=== PATIENT | male | born 1975 | race Caucasian/White ===

== ENCOUNTER 2018-08-05 06:11 | Observation (INO) | payer OTHER ==
[~2018-08-05] VITALS: Ht 182.9 cm; Wt 75.0 kg
--- NOTE | ~2018-08-05 | HEMODYNAMI ---
PATIENT:DARIUS JIMENEZ MEDICAL RECORD: [id number] : 77 LOCATION:[address] ADMISSION DATE: 08/05/18 Generatedon:08/05/201812:50 Patient name: DARIUS JIMENEZ Patient #: [id number] SSN: : 1975 Date of study: 08/05/2018 Page: Of Hemodynamic Procedure Report Patient Data Patient Demographics Procedure consent was obtained First Name: DARIUS Gender: Male Last Name: TONY : 1975 Patient #: [id number] Age: 42 year(s) Race: Unknown Additional ID: [id number] Contact details [address]: [address] [place] [address] State: [place] City: [place] Zip code: [address] Admission Admission Data Admission Date: 08/05/2018 Admission Time: 7:34 Room #: D2123 Weight (lbs.): 165.35 Weight (kg.): 75 Lab Results Lab Result Date: 08/05/2018 Lab Result Time: 0:00 Biochemistry Name Units Result Min Max BUN mg/dl 12 --(-*--)-- 7 18 Creatinine mg/dl 1 --(--*-)-- 0.6 1.3 CBC Name Units Result Min Max Hemoglobin g/dl 15.7 --(--*-)-- 13.5 17.5 Procedure Procedure Types Cath Procedure Diagnostic Procedure [facility] w/Coronaries Procedure Description Procedure Date Procedure Date: 08/05/2018 Procedure Start Time: 12:40 Procedure End Time: 12:45 Procedure Staff Name Function Fadi Mireles MD Performing Physician Franklin Yu RT Monitor Peri Daley RT Scrub Brittany Galeana RN Nurse Justin Bo RT Cork Insulator Helper Procedure Data Cath Procedure Fluoroscopy Diagnostic fluoroscopy Total fluoroscopy Time: 1.3 time: 1.3 min min Diagnostic fluoroscopy Total fluoroscopy dose: 248 dose: 248 mGy mGy Contrast Material Contrast Material Type Amount (ml) Isovue 370 40 Entry Location Entry Primary Successful Side Size Upsize Upsize Entry Closure Raygoza ccessful Closure Location (Fr) 1 (Fr) 2 (Fr) Remarks Device Remarks Radial Right 6 Fr Mechanical artery Short Compression Estimated blood loss: 10 ml Diagnostic catheters Device Type Used For End Catheter Placement DIAGNOSTIC Bear 110cm 5 Procedure Fr catheter ([id number]) Procedure Complications No complications Procedure Medications Medication Administration Route Dosage 0.9% NaCl I.V. 100 ml/hr Oxygen etCO2 Nasal cannula 2 l/min Lidocaine 2% added to field 20 Heparin Flush Bag added to field 2 bags (1000units/500ml NS) Radial Cocktail added to field 1 syringe (Verapamil 2mg/Nitro 400mcg/Heparin 1500units) Versed I.V. 2 mg Fentanyl I.V. 50 mcg Lopressor I.V. 5 mg Versed I.V. 2 mg Fentanyl I.V. 50 mcg Hemodynamics Rest HGB: 15.7 (g/dl) Heart Rate: 98 (bpm) Pressure Samples Time Site Value (mmHg) Purpose Heart Use Rate(bpm) 12:43 AO 108/87(98) Snapshot 88 Snapshots Pre Cath Intra NCS Post Cath Vital Signs Time Heart Resp SPO2 etCO2 NIBP (mmHg) Rhythm Pain Sedation Rate (ipm) (%) (mmHg) Status Level (bpm) 12:12:27 86 17 98 23 158/97(129) NSR 0 (11) 10(A) , No pain 12:16:43 69 26 100 24.1 167/100(130) NSR 0 (11) 10(A) , No pain 12:21:03 91 16 98 27.9 150/99(122) NSR 0 (11) 10(A) , No pain 12:25:11 87 15 97 27.1 160/91(121) NSR 0 (11) 10(A) , No pain 12:29:15 85 16 98 25.6 151/96(111) NSR 0 (11) 10(A) , No pain 12:33:18 85 15 98 12.8 152/87(128) NSR 0 (11) 10(A) , No pain 12:37:18 93 14 92 29.4 156/96(113) NSR 0 (11) 10(A) , No pain 12:42:13 81 16 98 26.3 190/87(104) NSR 0 (11) 10(A) , No pain Medications Time Medication Route Dose Verified Delivered Reason Notes E ffectiveness by by 12:15:51 0.9% NaCl I.V. 100 Fadi Brittany used for ml/hr Chi Galeana partition assembly machine operator 12:15:58 Oxygen etCO2 2 l/min Fadi Brittany used for Nasal Chi Galeana procedure cannula RN 12:16:03 Lidocaine 2% added 20ml Fadi Fadi for local to vial Chi Mireles MD anesthetic field 12:16:08 Heparin Flush added 2 bags Fadi Fadi used for Bag to Cih Mireles MD procedure (1000units/500ml field NS) 12:16:16 Radial Cocktail added 1 Fadi Fadi used for (Verapamil to syringe Chi Mireles MD procedure 2mg/Nitro field 400mcg/Heparin 1500units) 12:34:24 Versed I.V. 2 mg Fadi Brittany for Chi Galeana sedation RN 12:34:31 Fentanyl I.V. 50 mcg Fadi Brittany for Chi Galeana sedation RN 12:39:20 Versed I.V. 2 mg Fadi Brittany for Chi Galeana sedation RN 12:39:28 Fentanyl I.V. 50 mcg Fadi Brittany for Chi Galeana sedation RN 12:45:16 Lopressor I.V. 5 mg Fadi Brittany Per Chi Galeana physician director of field service Log Time Note 11:45:15 Justin Bo RT(R) sent for patient. Start room use. 11:52:53 Diagnostic Cath Status : Elective 11:53:16 Time tracking: Regular hours (M-F 7:00 - 5:00) 11:53:20 Plan of Care:Hemodynamics will remain stable., Cardiac rhythm will remain stable., Comfort level will be maintained., Respiratory function will remain adequate., Patient/ family verbilizes understanding of procedure., Procedure tolerated without complication., Recovers from procedure without complications.. 12:05:13 Patient received from Pre/Post Procedure Room to CCL 2 Alert and oriented. Tansferred to table in Supine position. 12:05:23 Warm blankets applied, and ruperto hugger turned on for patient comfort. 12:05:24 Correct patient and procedure confirmed by team. 12:05:26 Signed procedure consent form obtained from patient. 12:05:27 ECG and BP/O2 sat monitors applied to patient. 12:11:14 Vital chart was started 12:11:36 Rhythm: sinus rhythm 12:11:37 Full Disclosure recording started 12:12:41 H&P Date Dictated: 08/05/2018 Within 30 days and on chart., H&P Addendum completed by physician on day of procedure. (MUST COMPLETE FOR ALL OUTPATIENTS). 12:12:42 Pre-procedure instructions explained to patient. 12:12:42 Pre-op teaching completed and patient verbalized understanding. 12:12:44 Family unavailable. 12:12:46 Patient NPO since Midnight. 12:12:47 Is the patient allergic to Iodine/contrast media? No. 12:12:49 Is patient on blood thinner?No 12:12:50 Patient diabetic? No. 12:12:53 Previous problem with sedation/anesthesia? No ? 12:12:54 Snore? Yes 12:12:55 Sleep apnea? No 12:12:56 Deviated septum? No 12:12:56 Opens mouth fully? Yes 12:12:57 Sticks out tongue? Yes 12:13:01 Dentures? No ? 12:13:03 Airway obstruction? No ? 12:13:07 Pre procedure: right dorsailis pedis pulse 1+ Palpable, but thready & weak; easily obliterated 12:13:09 Modified Aman's test Ulnar < 7 seconds 12:13:12 Patient pain scale 0/10 ?. 12:13:16 IV patent on arrival in left forearm with 0.9% NaCl at [facility]. 12:13:19 Lab results completed and on chart. 12:13:22 Right Radial & Right Groin area was prepped with chlora-prep and draped in sterile fashion 12:13:23 Alarms reviewed by R. N. 12:13:24 Sharps counted by scrub and verified by R.N. 12:15:51 0.9% NaCl 100 ml/hr I.V. was administered by Brittany Galeana RN; used for procedure; 12:15:58 Oxygen 2 l/min etCO2 Nasal cannula was administered by Brtitany Galeana RN; used for procedure; 12:16:03 Lidocaine 2% 20ml vial added to field was administered by Fadi Mireles MD; for local anesthetic; 12:16:08 Heparin Flush Bag (1000units/500ml NS) 2 bags added to field was administered by Fadi Mireles MD; used for procedure; 12:16:16 Radial Cocktail (Verapamil 2mg/Nitro 400mcg/Heparin 1500units) 1 syringe added to field was administered by Fadi Mireles MD; used for procedure; 12:19:21 Use device set Radial Dx or PCI 12:19:22 Tegaderm 4 x 4 (1626W) opened to sterile field. 12:19:23 ACIST Manifold (37182) opened to sterile field. 12:19:24 ACIST Hand Control (36505) opened to sterile field. 12:19:25 ACIST Syringe (14403) opened to sterile field. 12:19:26 Medline Cath Pack ([id number]) opened to sterile field. 12:19:26 Bag Decanter (2002) opened to sterile field. 12:19:27 DIAGNOSTIC WIRE .035 260cm J wire (935250) opened to sterile field. 12:19:29 SHEATH 6FR Slender (80-1294) opened to sterile field. 12:19:32 MBrace Wrist Support ([id number]) opened to sterile field. 12:33:11 Patient Weight : 165.35 lbs 12:33:37 Lab Result : Creatinine 1 mg/dl 12:33:37 Lab Result : BUN 12 mg/dl 12:33:37 Lab Result : Hemoglobin 15.7 g/dl 12:33:59 --------ALL STOP TIME OUT------ 12:34:00 Final Timeout: patient, procedure, and site verified with staff and physician. All members of the team are in agreement. 12:34:02 Right Radial & Right Groin site verified by team. 12:34:05 Maximum allowable Isovue 370 dose 300ml. Physician notified. (300ml for normal creatinines. For patients with creatinine of 1.7 or higher multiply weight(kg) x 5 divided by creatinine.) 12:34:09 Fire Safety Assessment: A--An alcohol-based skin anteseptic being used preoperatively., C--Open oxygen or nitrous oxide is being used., D--An ESU, laser, or fiber-optic light is being used. 12:34:12 Physical assessment completed. ASA score P 2 - A patient with mild systemic disease as per Fadi Mireles MD. 12:34:14 Sedation plan: IV Moderate Sedation Medication:Versed, Fentanyl 12:34:24 Versed 2 mg I.V. was administered by Brittany Galeana RN; for sedation; 12:34:31 Fentanyl 50 mcg I.V. was administered by Brittany Galeana RN; for sedation; 12:39:20 Versed 2 mg I.V. was administered by Brittany Galeana RN; for sedation; 12:39:28 Fentanyl 50 mcg I.V. was administered by Brittany Galeana RN; for sedation; 12:40:18 Procedure started. 12:40:23 Local anesthetic to right radial artery with Lidocaine 2% by Fadi Mireles MD.INITIAL ACCESS ONLY 12:40:44 A 6 Fr Short sheath was inserted into the Right Radial artery 12:41:54 A DIAGNOSTIC Bear 110cm 5 Fr catheter ([id number]) was advanced over the wire and used for Procedure. 12:42:10 LV angiography performed. 12:42:11 LV gram done using RANDALL 12:42:16 EF : 55 % 12:42:19 Injector settings: Ml/sec: 7, Volume: 15, 12:42:25 Baseline sample Acquired. 12:42:38 LCA angiography performed. 12:43:17 RCA angiography performed. 12:43:37 Catheter removed. 12:43:50 TR BAND Standard ([id number]) opened to sterile field. 12:44:02 Sheath removed intact; hemostasis achieved with Mechanical Compression to the Right Radial artery. 12:44:03 Procedure ended.(Physican Out) 12:44:14 Fluoroscopy time 01.30 minutes. 12:44:18 Fluoroscopy dose: 248 mGy 12:44:18 Flurop Dose total: 248 12:44:22 Contrast amount:Isovue 370 40ml. 12:44:23 Sharps counted by scrub and verified by R.N. 12:44:30 Insertion/operative site no bleeding no hematoma. 12:44:44 TR band inflated with 12cc of air. 12:44:45 Post Procedure Pulses reassessed and unchanged 12:44:47 Post-procedure physical assessment completed. ASA score P 2 - A patient with mild systemic disease as per Fadi Mireles MD. 12:44:49 Post procedure rhythm: unchanged. 12:44:55 Estimated blood loss: 10 ml 12:44:56 Post procedure instruction explained to patient.Patient verbalizes understanding. 12:44:57 Patient needs reinforcement of post procedure teaching. 12:45:01 Procedure and supply charges have been captured, reviewed, submitted and are correct. 12:45:03 Procedure Complication : No complications 12:45:16 Lopressor 5 mg I.V. was administered by Brittany Galeana RN; Per physician; 12:45:28 Vital chart was stopped 12:45:29 See physician's report for complete and final results. 12:45:31 Report given to PCU. 12:45:35 Patient transfered to PCU with Bed. 12:45:38 Procedure ended. 12:45:38 Full Disclosure recording stopped 12:49:34 End room use (Document Last) Device Usage Item Name Manufacture Quantity Catalog Hospital Part Current Minimal Lot# / Number Charge Number Stock Stock Serial# Code Tegaderm 4 3M 1 1626W [id number] 492419 829141 5 x 4 (1626W) ACIST Acist 1 25423 108540 105363 742787 5 Manifold Medical (21646) Systems Inc ACIST Hand Acist 1 38931 450981 564015 865706 5 Control Medical (42629) Systems Inc ACIST Acist 1 15785 903294 014445 146644 20 Syringe Medical (89356) Systems Inc Medline Medline 1 [id number] 078044 42422 496414 5 Cath Pack ([id number]) Bag Microtek 1 2001S 469255 49962 173413 5 Decanter Medical Inc. () DIAGNOSTIC [place] 1 833570 355363 992704 373676 30 WIRE .035 260cm J wire (517671) SHEATH 6FR Terumo 1 [id number] 069400 379953 427492 5 Slender (80-1060) MBrace Advanced 1 140-0250-00 016142 69975 758475 5 Wrist Vascular Support Dynamics ([id number]) DIAGNOSTIC Terumo 1 40-5748 809882 956737 837216 5 Bear 110cm 5 Fr catheter (345173) TR BAND Terumo 1 [id number] 679041 642513 453603 40 Standard ([id number]) Signature Audit [place] Stage Time Signature Unsigned Intra-Procedure 08/05/2018 Franklin Yu 12:49:58 PM RT(R) Signatures Monitor : Franklin Yu RT Signature : Date : Time : [place] [id number] [place] [address]
--- NOTE | ~2018-08-05 | EC ---
PATIENT:DARIUS JIMENEZ DATE OF SERVICE: 08/05/18 SEX: M MEDICAL RECORD: [id number] DATE OF : [birth year] LOCATION:D.M2 D.212 AGE OF PATIENT: 42 ADMISSION DATE: 08/05/18 REFERRING PHYSICIAN: INTERPRETING PHYSICIAN: KATE MIRELES MD ECHOCARDIOGRAM REPORT ECHO CHARGES 4 ECHO COMPLETE Date: 08/05/18 CLINICAL DIAGNOSIS: CHEST PAIN ECHOCARDIOGRAPHIC MEASUREMENTS (adult normal given) AC root (d.<3.7cm) 3.8 cm LV Septum d (<1.2 cm> 1.4 cm Valve Excursion 1.9 cm LV Septum (systole) 1.9 cm Left Atria (s.<4.0cm> 3.2 cm LVPW d(<1.2cm) 1.5 cm RV (d.<2.3cm) 3.5 cm LVPW (sytole) 1.6 cm LV diastole(<5.6CM) 4.9 cm MV E-F(>70mm/sec) cm LV systole 2.7 cm LVOT Diameter 2.3 cm MV exc.(>10mm) 1.5 cm Est.ejection fraction (50-75%) % DOPPLER: LVIT cm/sec A 76.0 cm/sec E 82.0 cm/sec LA cm/sec RVSP 21 mmHg LVOT 107 cm/sec AOP1/2T m/s Asc. Ao 132 cm/sec RVOT 85 cm/sec RA cm/sec PA 122 cm/sec AV Gradient Peak 6.95 mmHg AV Mean 3.32 mmHg AV Area 3.1 cm MV Gradient Peak 5.20 mmHg MV Mean 2.36 mmHg MV Area cm COMMENTS: Manager Telemetry: Yaneli JOHNSON Case Planner: 1 Dr. Mireles TAPE# PACS Pericardial Effusion N DATE OF SERVICE: 08/05/2018 FINDINGS: 1. Left ventricular chamber size is within normal limits. Left ventricular systolic function is normal. Overall ejection fraction is estimated at 60%. 2. Left atrium, right atrium, and right ventricular chamber sizes are within normal limit. 3. Valvular structures have normal structure and motion. 4. Doppler interrogation only reveals trace tricuspid regurgitation. No other valvular insufficiency or stenosis. ECHOCARDIOGRAM REPORT [id number] DARIUS JIMENEZ 5. No evidence of pericardial effusion or left ventricular thrombus. TRANSINT:[id number] Voice Confirmation ID: [id number] DOCUMENT ID: [id number] KATE MIRELES MD CC: [id number] DICTATION DATE: 08/05/18 1639 ETHICS OFFICER: 08/05/18 1736 ADM IN [place] [id number] [place] [address]
[2018-08-05 06:47] LABS: BASOPHILS 0 % (0-2); EOSINOPHILS 0 % (0-7); HEMATOCRIT 45.9 % (42.0-54.0); HEMOGLOBIN 15.7 g/dL (13.5-17.5); IMMATURE GRANULOCYTES 0.3 % (0-5); LYMPHOCYTES 8.3 % (15-50); MCH 30.6 pg (26.0-34.0); MCHC 34.2 g/dL (31.0-37.0); MCV 89.5 fL (80.0-100.0); MEAN PLATELET VOLUME 10.8 fL (7.4-10.4); MONOCYTES 0.9 % (2-11); NEUTROPHILS 90.5 % (40-80); PLATELET COUNT 262 10x3/uL (130-400); RBC 5.13 10x6/uL (4.20-6.10); RDW 13.4 % (11.5-14.5); WBC 13.9 10x3/uL (4.8-10.8)
[2018-08-05 06:50] LABS: ALBUMIN 3.8 g/dL (3.4-5.0); ALKALINE PHOSPHATASE 104 U/L (46-116); ALT (SGPT) 29 U/L (10-68); BILIRUBIN - TOTAL 0.47 mg/dL (0.2-1.3); CALC OSMOLALITY 287 mosm/kg (275-300); CALCIUM 8.9 mg/dL (8.5-10.1); CARBON DIOXIDE 25.2 mmol/L (21.0-32.0); CHLORIDE - SERUM 106 mmol/L (98-107); GLUCOSE 144 mg/dL (74-106); POTASSIUM - SERUM 4.3 mmol/L (3.5-5.1); PROTEIN - SERUM 7.2 g/dL (6.4-8.2); SODIUM 143 mmol/L (136-145); UREA NITROGEN 12 mg/dL (7-18); eGFR NON AFRICAN AMERICAN 87 mL/min (90-120)
[2018-08-05 07:14] LABS: CKMB 1.5 U/L (0.0-3.6); CREATINE KINASE 45 UL (21-232)
[2018-08-05 07:18] LABS: TROPONIN-I 0.424 ng/mL (0.000-0.060)
[2018-08-05 07:21] LABS: APPEARANCE CLEAR (CLEAR); BILIRUBIN NEGATIVE (NEGATIVE); COLOR YELLOW (YELLOW); GLUCOSE NEGATIVE (NEGATIVE); KETONE NEGATIVE (NEGATIVE); NITRITE NEGATIVE (NEGATIVE); PROTEIN NEGATIVE (NEGATIVE); SPECIFIC GRAVITY 1.015 (1.005-1.020)
[2018-08-05 07:24] LABS: UDS - AMPHET POSITIVE QUAL (NEGATIVE); UDS - BARB NEGATIVE QUAL (NEGATIVE); UDS - BENZO NEGATIVE QUAL (NEGATIVE); UDS - COCAINE NEGATIVE QUAL (NEGATIVE); UDS - OPIATE POSITIVE QUAL (NEGATIVE); UDS - PCP NEGATIVE QUAL (NEGATIVE); UDS - THC NEGATIVE QUAL (NEGATIVE)
--- NOTE | 2018-08-05 07:26 | NUR ---
PATIENTS TROPONIN 0.424, WAS 0.096 AT [facility] THIS . DR. DAVIS AND DR. SHEARER NOTIFIED, NO NEW ORDERS.
--- NOTE | 2018-08-05 08:00 | NUR ---
ARRIVE TO ROOM VIA STRETCHER FROM ER. ALERT AND ORIENTED X4. AMBULATES TO BED. GAIT STEADY. IV INFUSING ORDERED. REFUSE SCDs. UP AD DANA. CONTACTED PER CHAPITO HOLGUIN. CONTINUE ADMISSION PROCESS AND SAFETY PRECAUTIONS.
[2018-08-05 10:26] VITALS: BP 130/83; Ht 182.9 cm; Wt 75.0 kg
--- NOTE | 2018-08-05 10:42 | NUR ---
ALERT AND ORIENTED X4. SITTING UP IN BED. CONSENTS FOR FRANCHISE SALES REPRESENTATIVE SIGNED ON CHART. PRE-OP COMPLETE. DENIES ANY NEEDS AT THIS TIME. SINUS RHYTHM 70 ON TELEMETRY. CONTINUE PLAN OF CARE AND SAFETY PRECAUTIONS.
[2018-08-05 12:10] VITALS: BP 123/58
--- NOTE | 2018-08-05 13:06 | NUR ---
ARRIVE BACK TO ROOM VIA BED FROM ARCHITECT MANAGER. SEDATED. AROUSES EASILY TO STIMULI. FAMILY AT BEDSIDE. RT WRIST TR BAND C/D/I. FREE FROM HEMATOMA. FREE FROM BLEEDING. PULSES PALPABLE BILATERALLY. BP-125/75, HR-73, O2-95% WITH 2.5L NC. CONTINUE PLAN OF CARE AND SAFETY PRECAUTIONS.
[2018-08-05] MEDS ORDERED: BAYER CHEWABLE81 MG PO (14:27)
[2018-08-05] MEDS ORDERED: LOPRESSOR25 MG PO (14:28)
--- NOTE | 2018-08-05 17:17 | CN ---
PATIENT NAME:DARIUS BURRIS MEDICAL RECORD: [id number] : 77 LOCATION:D. D.2123 ADMIT DATE: 08/05/18 ACCOUNT: [id number] CONSULTING PHYSICIAN: KATE SHEARER MD REFERRING PHYSICIAN: FRANK OLIVA DO DATE OF CONSULTATION: 08/05/2018 DIAGNOSES: 1. Non-Q-wave myocardial infarction. 2. Continued anginal chest discomfort. 3. Substance abuse. HISTORY OF PRESENT ILLNESS: Mr. Burris presents with chest discomfort. He presented to [facility] with chest discomfort. Troponin was elevated. There, he was sent here for higher level of care. His troponin has gone up further. He continues to have episodes of chest pain. He stated he had 4/10 chest pain when I was interviewing him this morning. He does have positive drug screen for methamphetamines; however, his heart rate is in the 60s and 70s, and his systolic blood pressures in the 110 range at this time with the continued chest discomfort. PHYSICAL EXAMINATION: GENERAL APPEARANCE: Well-nourished, well-developed, appears stated age. Level of distress, comfortable. PSYCHIATRIC: Mental status, alert, normal affect. Orientation, oriented to time, place and person. EYES: Lids and conjunctiva, noninjected. No discharge, no pallor. ENT: Lips, teeth, gums, normal dentition. Oropharynx, no cyanosis, no pallor. NECK: Carotid arteries, bilateral normal upstroke, no bruits, no thrills. JUGULAR VEINS: No jugular venous pressure or distention. CERVICAL LYMPH NODES: Nontender, nonenlarged. THYROID: Not enlarged. Nontender. No nodules. LUNGS: Respiratory effort, unlabored. CHEST: Normal curvature. No thoracic deformity. No chest wall tenderness. Percussion, resonant. Auscultation, clear. No wheezes, no rales, no rhonchi. CARDIOVASCULAR: Precordial exam, nondisplaced. No heaves or pericardial thrills. Rate and rhythm, regular. Heart sounds, normal S1, normal S2. No S3, no gallop, no rub. Systolic murmur, not heard. Diastolic murmur, not heard. EXTREMITIES: No cyanosis, no edema. Peripheral pulses, full and equal in all extremities, except as noted. No bruits appreciated. ABDOMEN: Soft, nondistended. Normal aorta. No bruit. Nontender. No masses. Liver, nontender, no hepatomegaly. Spleen, nontender, no splenomegaly. MUSCULOSKELETAL: No joint tenderness. No joint swelling. No erythema. NEUROLOGICAL: Normal gait, normal strength, normal tone. SKIN: Warm and dry. OVERALL IMPRESSION: Continued chest discomfort, it very well may be demand ischemia from the mass, but it is unusual that he would have continued chest pain with continued elevation of troponin, especially due to the fact his heart rate and blood pressure are optimal now and he clinically does not have any signs of methamphetamines at this time. Hence due to the continued symptomatology and the increasing troponin, we will proceed with coronary angiography. Further care depends upon the findings of the angiography. TRANSINT:[id number] Voice Confirmation ID: [id number] DOCUMENT ID: [id number] CONSULT REPORT [id number] DARIUS BURRIS, KATE JOHNS at 1717 CC: [id number] DICTATION DATE: 08/05/18 0846 EXTENSION SERVICE ADVISOR: 08/05/18 0900 ADM IN [place] [id number] [place] [id number]
--- NOTE | 2018-08-05 17:17 | OP ---
PATIENT NAME: DARIUS JIMENEZ MEDICAL RECORD: [id number] :77 LOCATION:D.M2 D.2123 ADMISSION DATE:08/05/18 SURGEON: KATE SHEARER MD DATE OF OPERATION: 08/05/2018 PROCEDURES: 1. Left heart catheterization. 2. Selective coronary angiography. 3. Left ventriculogram. INDICATIONS: Increased troponin, non-Q-wave myocardial infarction, coronary artery disease, shortness of breath. DESCRIPTION OF PROCEDURE: After informed consent was obtained and after a detailed explanation of risks, benefits as well as alternative therapies, the patient elected to proceed with angiogram and heart catheterization. The right radial area was prepped and draped in normal sterile fashion. Right radial artery was cannulated via modified Seldinger technique with placement of 5-Cayman Islander sheath. All catheters exchanged through this sheath. FINDINGS: Left ventriculogram was performed in standard 30-degree RANDALL view, reveals good cardiac wall motion throughout all segments. Overall ejection fraction estimated 60%. SELECTIVE CORONARY ANGIOGRAPHY: 1. Left main has no significant angiographic disease. 2. Left anterior descending has mild irregularities, nothing greater than 20%, no flow-limiting stenosis. 3. Right coronary smooth-walled vessel, showed no significant angiographic disease. OVERALL IMPRESSION: Minimal coronary artery disease is present. Myocardial infarction was secondary to the minimal coronary artery disease along with demand ischemia from substance abuse. Standard medical management and treatment of the tachycardia and substance abuse. TRANSINT:[id number] Voice Confirmation ID: [id number] DOCUMENT ID: [id number] KATE SHEARER MD at 1717 CC: [id number] DICTATION DATE: 08/05/18 1248 WASTE RECLAIMER: 08/05/18 1332 ADM IN [place] [id number] [place] [id number]
--- NOTE | 2018-08-05 18:07 | NUR ---
ALERT AND ORIENTED X4. RT WRIST TR BAND REMOVED. DRESSING C/D/I. FREE BLEEDING. FREE FROM HEMATOMA. PULSE PALPABLE BILATERALLY. WRIST IMMOBILIZER ON RT WRIST. DISCHARGE INSTRUCTIONS GIVEN VERBALLY AND WRITTEN. DISCHARGE PAPERS SIGNED ON CHART. DC LT FA IV TIP INTACT. ESCORT TO RIDE VIA WHEELCHAIR. REMAINS FREE FROM INJURY.
== END 2018-08-05 18:09 | disposition home or self-care (01) ==
LOC: D.ER 06:11 → D.M2 07:34 → OBSVTIME 08:00 → D.M2 18:09
PROVIDERS: Family Medicine; ADMIT Family Medicine; ATTEND Family Medicine
DX: I21.4 Non-ST elevation (NSTEMI) myocardial infarction (principal); I25.10 Atherosclerotic heart disease of native coronary artery without angina pectoris; F15.10 Other stimulant abuse, uncomplicated; F17.213 Nicotine dependence, cigarettes, with withdrawal; R73.9 Hyperglycemia, unspecified